=== PATIENT | female | born 1975 | race Caucasian/White ===

== ENCOUNTER 2016-07-14 13:23 | Emergency (ER) | payer OTHER ==
--- NOTE | ~2016-07-14 | MR113 ---
[facility] A Service of [facility] & [facility] RADIOLOGY TEXT RESULTS PATIENT: JESUS ACKERMAN LOCATION: [facility] : [birth year] UNIT #: [id number] AGE: [address]: Hu Domingo MD SEX: F ORDER DR: [id number] [facility] [address] [place], [place] [address] [id number] E MR#: [id number] #: [id number] NAME: JESUS ACKERMAN. : 1975 SEX: F STUDY DATE/TIME: 07/14/2016 18:06 UNIT: [facility] ROOM: STUDY DESCRIPTION: MR Lumbar Wo Contrast Attending Physician: Hu Domingo M.D. Ordering Physician: Hu Domingo M.D. Primary Care Physician: Primary Care Physician No MRI CENTER REPORT This report is preliminary unless electronic signature is present. EXAM MRI of the lumbar spine without contrast HISTORY Trauma, abnormal lumbar spine CT scan after a fall today, patient complains of lower extremity weakness and abnormal reflexes. See separate dictation of the thoracic spine. COMMENT MRI of the lumbar spine performed without contrast using routine 1.5T imaging technique. There is an earlier CT scan. Sagittal alignment is normal. There is multiple-level Schmorl node formation. There is no recent compression fracture. Marrow endplate degenerative changes most prominent at the 4-5 level, where it is type II with moderate loss of disc height, and there is some mild disc desiccation at lower lumbar levels. The conus medullaris terminates at L1-2 and is normal. At L1-2, there is a mild concentric disc bulge, mild bilateral facet hypertrophy, effacement of the thecal sac but no central canal stenosis or foraminal impingement. At L2-3, there is moderate right and wnso-co-fgrztubs left side facet arthritis with ligamentum flavum thickening. There is a concentric disc bulge and these findings are superimposed upon a developmentally small bony canal due to short pedicles such that there is severe canal stenosis with mass effect on the bilateral lateral recesses. There is mild inferior foraminal narrowing bilaterally. At L3-4, there is approximately moderate facet degenerative change bilaterally and mild ligamentum flavum thickening. There is a concentric disc bulge and the combination of findings superimposed upon the STS. [facility] A Service of [facility] & [facility] RADIOLOGY TEXT RESULTS PATIENT: JESUS ACKERMAN LOCATION: [facility] : [birth year] UNIT #: [id number] AGE: [address]: Hu Domingo MD SEX: F ORDER DR: developmentally small canal result in approximately moderate canal stenosis, with mass effect on ufgf-qmwoxim-ttyj-right lateral recess. There is moderate right and milder left side foraminal narrowing. At L4-5, there is moderate facet degenerative change bilaterally. There is a concentric disc bulge, endplate spondylosis and a superimposed broad right paramedian extrusion that extends caudad from the disc level but remains contiguous with it. It is about 1.4 cm SI dimension, 0.8 cm AP dimension, and 1.6 cm ML dimension. There is mild canal stenosis with focal mass effect on the right lateral recess expected location right L5 root, milder mass effect on the left lateral recess. Ctvz-gg-xpwepexs right and left side foraminal narrowing. L5-S1, mild right and jach-rk-lpvruvdi left side facet degenerative change. Small focal central disc protrusion. No canal stenosis. Oqia-gg-hpfpcgeu bilateral foraminal narrowing. IMPRESSION 1. There is multiple-level lumbar degenerative change with details provided above. They are superimposed upon a developmentally small canal secondary to short pedicles, such that there is multilevel canal stenosis and foraminal impingement. Canal stenosis is severe at the level of L2-3. At the level of L4-5, there is a superimposed right paramedian extrusion extending caudad from the disc, remaining contiguous with it, and impinging upon the expected location of the right L5 root in the right lateral recess in particular. See the separate dictation of the thoracic spine MRI for a description of the likely cord contusion at the level of T10-11. STAT * RESULT Dictated by... Jazzy Campos M.D. THIS IS AN ELECTRONICALLY VERIFIED REPORT Jazzy Campos M.D. at 07/14/2016 8:44 PM JENNIFER/janina TD: 07/14/2016 19:28 JOB #: [id number] MRI CENTER REPORT Page 1 of 1 COPY
--- NOTE | ~2016-07-14 | CT98 ---
[facility] A Service of [facility] & [facility] RADIOLOGY TEXT RESULTS PATIENT: JESUS ACKERMAN LOCATION: [facility] : 79 UNIT #: [id number] AGE: [address]: Hu Domingo MD SEX: F ORDER DR: [id number] [facility] [address] [place], [place] [address] [id number] E MR#: [id number] Acc #: [id number] NAME: JESUS ACKERMAN. : 1975 SEX: F STUDY DATE/TIME: 07/14/2016 14:54 UNIT: [facility] ROOM: STUDY DESCRIPTION: CT Lumbar Spine Wo Cont Attending Physician: Hu Domingo M.D. Ordering Physician: Hu Domingo M.D. Primary Care Physician: Primary Care Physician No MEDICAL IMAGING REPORT This report is preliminary unless electronic signature is present EXAM Lumbar spine CT without contrast. HISTORY Fell today from standing. Legs feel rubbery. Patient is unable to stand. Sacral pain today. No history of cancer. This CT exam was performed with one or more of the following radiation dose reduction techniques: automatic exposure control, adjustment of mA and/or kV according to patient size, and iterative reconstruction. FINDINGS CT of the lumbar spine performed in the axial plane without contrast followed by sagittal and coronal reconstructed images. Sagittal alignment is normal. Multiple level Schmorl node formation noted. End plate spondylosis at L4-5 with loss of disc height and mild vacuum disc formation. 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 No sacral fracture is seen. There is acute angulation of the sacral coccygeal junction with coccyx angled anteriorly but this appears to be developmental and chronic. Nothing to suggest an acute fracture. Please correlate with physical exam findings. At T12-L1, no canal stenosis or bony foraminal impingement. At L1-2, there is mild right side facet degenerative change and ligamentum flavum thickening. There is mild concentric disc bulge and very mild canal stenosis. No bony foraminal impingement. L2-3, there is facet degenerative change, moderate right, mild left with ligamentum flavum thickening. There is concentric disc bulge and combination of findings result in severe canal stenosis. There is no bony foraminal impingement but there is probably some soft tissue foraminal STS. [facility] A Service of [facility] & [facility] RADIOLOGY TEXT RESULTS PATIENT: JESUS ACKERMAN LOCATION: [facility] : 79 UNIT #: [id number] AGE: [address]: Hu Domingo MD SEX: F ORDER DR: compromise. L3-4, mild to moderate facet degenerative change bilaterally with some ligamentum flavum thickening. Concentric disc bulge with anterior end plate spondylosis. Probable at least moderate canal stenosis and mass effect on bilateral lateral recesses and there is some bilateral foraminal narrowing. At L4-5, mild right, mild to moderate left sided facet degenerative change, ligamentum flavum thickening with concentric disc bulge. I suspect mild to moderate canal stenosis and mass effect on bilateral lateral recesses. There is some foraminal narrowing bilaterally. L5-S1, no significant canal stenosis. I cannot exclude some foraminal narrowing. Patient is best assessed further with MRI if candidate. IMPRESSION 1. There is no acute fracture or traumatic malalignment. 2. There is evidence for multiple level degenerative disease with likely canal stenosis most severe at the L2-3 level. The patient is best assessed further with MRI lumbar spine. 3. There is nothing to suggest a sacral fracture. There is angulation anteriorly of the coccyx with respect to the sacrum. I suspect this is chronic and developmental but please correlate further with findings on physical exam. Dictated by... Jazzy Campos M.D. THIS IS AN ELECTRONICALLY VERIFIED REPORT Jazzy Campos M.D. at 07/15/2016 3:39 PM Krissy TD: 07/15/2016 06:23 JOB #: [id number] MEDICAL IMAGING REPORT Page 1 of 1 COPY
--- NOTE | ~2016-07-14 | MR176 ---
[facility] A Service of [facility] & [facility] RADIOLOGY TEXT RESULTS PATIENT: JESUS ACKERMAN LOCATION: [facility] : 79 UNIT #: [id number] AGE: [address]: Hu Domingo MD SEX: F ORDER DR: [id number] [facility] [address] [place], [place] [address] [id number] E MR#: [id number] Acc #: [id number] NAME: JESUS ACKERMAN : 1975 SEX: F STUDY DATE/TIME: 07/14/2016 17:45 UNIT: [facility] ROOM: STUDY DESCRIPTION: MR Thoracic Wo Contrast Attending Physician: Hu Domingo M.D. Ordering Physician: Hu Domingo M.D. Primary Care Physician: Primary Care Physician No MRI CENTER REPORT This report is preliminary unless electronic signature is present. EXAM Thoracic MRI without HISTORY Trauma with lower extremity weakness and abnormal Babinski's, abnormal lumbar spine CT scan, concern for cord contusion also. COMMENT MRI of the thoracic spine was performed without contrast using routine 1.5T imaging technique. No prior imaging of the thoracic spine. Sagittal alignment is normal. Multiple-level lower thoracic Schmorl node formation noted. Multiple-level mid thoracic disc desiccation and smaller Schmorl node formation. There is a abnormal appearance to the thoracic cord at the level of T10-11. There is severe compression and signal abnormality within the cord over a short segment about 1 cm in length and this is most consistent with contusion in light of the history provided. It appears that there is focal ligamentum flavum thickening and/or ossification zktl-pdvmtje-wttm-right side posterolaterally contributing to the canal stenosis and mass effect on the cord at this level, in addition to at least moderate right and pcnmbhkk-nh-lqsyvg left side facet arthritis. There is no focal disc extrusion seen. There is some bilateral foraminal narrowing related to the facet arthritis at T10-11. There is no recent compression fracture. Thoracic cord above and below this level shows normal signal intensity. There is multiple-level facet arthritis also moderate at T9-10 worse to the left, moderate on the left at T11-12. Bone marrow signal intensity is unremarkable. IMPRESSION 1. There is severe canal stenosis at T10-11 due to facet degenerative change and ligamentum flavum thickening/ossification. There is an STS. [facility] A Service of [facility] & [facility] RADIOLOGY TEXT RESULTS PATIENT: JESUS ACKERMAN LOCATION: [facility] : 79 UNIT #: [id number] AGE: [address]: Hu Domingo MD SEX: F ORDER DR: associated focus of cord signal intensity abnormality centered at the level of the T10-11 intervertebral disc about 1 cm in length, probably worse anteriorly. This is likely an area of cord contusion in light of history and the amount of canal stenosis. No focal extrusion is appreciated. Additionally, there is some foraminal narrowing bilaterally at this level. 2. There is no recent compression fracture. Alignment is normal. Otherwise, there is multiple-level Schmorl node formation and there is some facet degenerative change at other levels less severe than at the T10-11 level. STAT * RESULT Dictated by... Jazzy Campos M.D. THIS IS AN ELECTRONICALLY VERIFIED REPORT Jazzy Campos M.D. at 07/14/2016 8:43 PM SAC/psc TD: 07/14/2016 19:12 JOB #: [id number] MRI CENTER REPORT Page 1 of 1 COPY
[~2016-07-14 13:23] MED LIST: KETOPROFEN PO
[2016-07-14 14:16] LABS: BASOPHIL# 0.1 X10e3 (0-0.3); BASOPHIL% 0.6 % (0-2.5); EOSINOPHIL# 0.1 X10e3 (0-0.7); EOSINOPHIL% 0.7 % (0.0-7.0); HEMATOCRIT 40.1 % (35.0-45.0); HEMOGLOBIN 12.5 gm/dL (12.0-16.0); LYMPHOCYTE# 2.2 X10e3 (1.0-3.5); LYMPHOCYTE% 17.9 % (17.0-45.0); MEAN CELL VOLUME 83.2 FL (83-96); MEAN CORPUSCULAR HEMOGLOBIN 25.9 PG (28-34); MEAN CORPUSCULAR HGB CONC 31.2 g/dL (30-36); MEAN PLATELET VOLUME 8.4 FL (6.5-11.5); MONOCYTE# 0.9 X10e3 (0-1.0); MONOCYTE% 7.5 % (3.0-12.0); NEUTROPHIL# 8.8 X10e3 (1.5-7.1); NEUTROPHIL% 73.3 % (40-75); PLATELET COUNT 344 X10e3 (140-420); RED BLOOD COUNT 4.82 X10e (3.90-5.30); RED CELL DISTRIBUTION WIDTH 17.3 % (11.0-15.5); WHITE BLOOD COUNT 12.1 X10e3 (4.0-10.5)
[2016-07-14 14:24] LABS: PARTIAL THROMBOPLASTIN TIME 22.7 SECONDS (23.5-31.3); PROTHROMBIN TIME (PATIENT) 10.7 SECONDS (9.6-11.5)
[2016-07-14 14:28] LABS: DIFF IND NO
[2016-07-14 14:33] LABS: BUN/CREATININE RATIO 18.33; CALCIUM SERUM 8.7 mg/dL (8.4-10.2); CREATININE SERUM 0.6 mg/dL (0.6-1.4); GLOM FILT RATE Estimated 114.8 mL/min (>60); POTASSIUM 3.8 mmol/L (3.5-5.1)
[2016-07-14] MEDS ORDERED: NO MEDICATIONS (18:27)
== END 2016-07-14 19:15 | disposition other institution (70) ==
LOC: CED 13:23
PROVIDERS: Emergency Medicine
DX: S34.109A Unspecified injury to unspecified level of lumbar spinal cord, initial encounter (principal); M48.00 Spinal stenosis, site unspecified; M79.89 Other specified soft tissue disorders; F17.200 Nicotine dependence, unspecified, uncomplicated; W10.9XXA Fall (on) (from) unspecified stairs and steps, initial encounter; Y92.009 Unspecified place in unspecified non-institutional (private) residence as the place of occurrence of the external cause
CPT/HCPCS: 36415; 72131; 72146; 72148; 80048; 84703; 85025; 85610; 85730; 96374; 96375; 99285; J2270; J2405